=== PATIENT | female | born 1960 | race Caucasian/White ===

== ENCOUNTER → 2017-03-01 | Outpatient (CLI) | payer BC ==
--- NOTE | 2017-03-01 08:36 | CT ---
EXAMINATION TYPE: CT brain wo con DATE OF EXAM: 03/01/2017 COMPARISON: NONE HISTORY: ARTIS and dizziness CT DLP: [address] of the brain was performed. The ventricles, basal cisterns and sulci overlying the cerebral convexities demonstrate mild enlargem ent. There is no evidence for intracranial hemorrhage or sulcal effacement. There is decreased attenuation about the periventricular white matter and deep white matter of both c erebral hemispheres, compatible with chronic small vessel ischemia. Differential diagnosis does inclu de demyelination. No mass effects are seen.No midline shift. Osseous calvarium is intact. If symptoms persist consider MRI. IMPRESSION: 1. Mild Age related atrophic and chronic small vessel ischemic change without acute intracranial proc ess seen at this time.
--- NOTE | 2017-03-01 09:53 | US ---
EXAMINATION TYPE: US carotid duplex BILAT DATE OF EXAM: 03/01/2017 COMPARISON: NONE CLINICAL HISTORY: R51 headache dizziness. EXAM MEASUREMENTS: RIGHT: Peak Systolic Velocity (PSV) cm/sec ----- Right CCA: 83.4 ----- Right ICA: 114.6 ----- Right ECA: 127.7 ICA/CCA ratio: 1.4 RIGHT: End Diastole cm/sec ----- Right CCA: 22.0 ----- Right ICA: 30.6 ----- Right ECA: 20.7 LEFT: Peak Systolic Velocity (PSV) cm/sec ----- Left CCA: 71.6 ----- Left ICA: 87.4 ----- Left ECA: 91.7 ICA/CCA ratio: 1.2 LEFT: End Diastole cm/sec ----- Left CCA: 18.5 ----- Left ICA: 32.3 ----- Left ECA: 14.1 VERTEBRALS (direction of flow): Right Vertebral: Antegrade Left Vertebral: Antegrade Rhythm: Normal Mild plaque, no significant velocity elevations. IMPRESSION: 1. Mild plaque formation with no significant hemodynamic stenosis bilaterally.
== END | disposition home or self-care (01) ==
LOC: RADCTMAIN 07:25
PROVIDERS: ATTEND Physician Assistant Medical
DX: I67.82 Cerebral ischemia (principal); G31.9 Degenerative disease of nervous system, unspecified; I65.23 Occlusion and stenosis of bilateral carotid arteries; R51 Headache
CPT/HCPCS: 70450; 93880

== ENCOUNTER → 2017-04-09 | Outpatient (CLI) | payer BC ==
--- NOTE | 2017-04-09 15:18 | XR ---
Cervical spine HISTORY: Neck pain 5 views of the cervical spine There is multilevel facet arthropathy. Probable carotid artery calcifications are noted. At C3-4, C5- 6 there is bilateral foraminal encroachment due to lateral extension of endplate disc complex. Cervic al vertebral bodies show preserved height. There is reduced bone mineralization. Retrolisthesis grade 1 C4-5, C5-6. There is multilevel spondylosis. Loss of disc height C3 C5-6. IMPRESSION: Degenerative disc disease, foraminal encroachment. Facet arthropathy. Osteopenia.
== END | disposition home or self-care (01) ==
LOC: RADXRMAIN 13:20
PROVIDERS: ATTEND Physician Assistant Medical
DX: M50.10 Cervical disc disorder with radiculopathy, unspecified cervical region (principal); M46.82 Other specified inflammatory spondylopathies, cervical region; M85.80 Other specified disorders of bone density and structure, unspecified site
CPT/HCPCS: 72050